=== PATIENT | female | born 1990 | race Caucasian/White ===

== ENCOUNTER 2016-06-02 11:08 | Emergency (ER) | payer OTHER ==
--- NOTE | ~2016-06-02 | CT2 ---
[facility] A Service of [facility] & [facility] RADIOLOGY TEXT RESULTS PATIENT: SONNY CHOI LOCATION: [facility]FT[facility] : 86 UNIT #: [id number] AGE: [address]: Sue Lynch SEX: F ORDER DR: [id number] [facility] [address] [place], [place] [address] [id number] E MR#: [id number] Acc #: [id number] NAME: SONNY CHOI : 1990 SEX: F STUDY DATE/TIME: 06/02/2016 13:37 UNIT: CFTX ROOM: STUDY DESCRIPTION: CT Abd and Pelv W Cont Attending Physician: Sue Lynch Pa-C Ordering Physician: Sue Lynch Pa-C Primary Care Physician: Generic Doctor Not In System MEDICAL IMAGING REPORT This report is preliminary unless electronic signature is present EXAM CT abdomen and pelvis 06/02/2016 HISTORY Pelvic pain after urination this a.m. Prior history of cholecystectomy. TECHNIQUE CT abdomen and pelvis performed with intravenous administration 100 mL Isovue-370. This CT exam was performed with one or more of the following radiation dose reduction techniques: automatic exposure control, adjustment of mA and/or kV according to patient size, and iterative reconstruction. COMPARISON STUDIES Comparison 09/04/[address] ABDOMEN: The lung bases show no acute disease. There is minimal dependent atelectasis at the left lung base. Inferior heart and pericardium unremarkable. Diffuse fatty infiltration of liver. No focal hepatic parenchymal abnormality. Status post cholecystectomy. Mild central biliary ductal prominence. No change. This is felt to be physiologic in nature and related to prior cholecystectomy. No obstructing process is suggested. The spleen, a small accessory spleen, pancreas, adrenal glands are unremarkable. Left kidney and ureter unremarkable. There is mild to mild/moderate right hydronephrosis to the level of a right pyeloureteral junction calculus measuring 4-5 mm in diameter. There is slight delay in contrast enhancement of the right kidney and this is felt secondary to the partial obstruction. No other right renal or ureteral calculi are seen. There is no perinephric fluid collection. Distal to the right pyeloureteral junction calculus the ureter is decompressed. [facility]. [facility] A Service of [facility] & [facility] RADIOLOGY TEXT RESULTS PATIENT: SONNY CHOI LOCATION: CFTX : 86 UNIT #: [id number] AGE: [address]: Sue Lynch SEX: F ORDER DR: CT PELVIS: No inguinal adenopathy. The urinary bladder is unremarkable. Small uterine fundal fibroid. Status post bilateral fallopian tube occlusion. Small follicular ovarian cysts. No free fluid in the pelvis. No pelvic or retroperitoneal adenopathy. Distal esophagus, stomach, small bowel, appendix normal. Colon unremarkable. There is a right paracentral umbilical hernia measuring 6.3 cm x 6.5 cm x 5.7 cm and containing only fat. Increased in size from prior examination when it measured 5.6 cm x 5.7 cm x 4.5 cm. No complication. The vascular structures are unremarkable. No acute bony abnormality. There is a metallic density anterior peroneal region favored to represent some form of genital jewelry. Please correlate with exam. IMPRESSION 1. 4-5 mm right pyeloureteral junction calculus. This is resulting in mild to mild/moderate right hydronephrosis and pelvic distension. No other renal, ureteral or bladder calculi are seen bilaterally. There is slight delay in right renal parenchymal contrast enhancement felt secondary to the partial obstruction. No perinephric fluid collection. 2. Status post cholecystectomy. 3. Pancreas, appendix normal. 4. Right paracentral umbilical hernia containing only fat. It has increased in size from prior examination but there is no evidence of complication. Please see measurements in body of report above. 5. Bilateral tubal occlusive devices in place. 6. Linear metallic density anterior inferior perineum favored to represent some form of genital jewelry. Please correlate with exam. Dictated by... Felipe Bowens M.D. THIS IS AN ELECTRONICALLY VERIFIED REPORT Felipe Bowens M.D. at 06/02/2016 4:49 PM Ayaka TD: 06/02/2016 16:02 JOB #: [id number] MEDICAL IMAGING REPORT Page 1 of 1 COPY
[~2016-06-02 11:08] MED LIST: BACTRIM DS TABL1 TA1 PO; CIPRO250 MG PO; DOXYCYCLINE HY100 M1 PO; FLONASE 0.05% N16 G1; IBUPROFEN800 MG PO; KEFLEX PO; KEFLEX250 M1 PO; MULTI-DAY VITAM1 TAB PO; ORUDIS75 M1 DOB; PYRIDIUM100 MG PO; TESSALON200 MG PO; VICODIN 5/1 TAB 5/50 PO; ZITHROMAX1 G/PKT PO; ZOFRAN PO
[2016-06-02 11:15] LABS: URINE SOURCE CLEAN CATCH
[2016-06-02 11:19] LABS: URINE APPEARANCE TURBID; URINE BILIRUBIN NEG (NEG); URINE BLOOD 3+ (NEG); URINE COLOR YELLOW; URINE GLUCOSE NEG (NEG); URINE KETONE NEG (NEG); URINE LEUKOCYTE ESTERASE 1+ (NEG); URINE NITRATE NEG (NEG); URINE PROTEIN 1+ (NEG); URINE SPECIFIC GRAVITY 1.022 (1.003-1.035); URINE UROBILINOGEN 0.2 MG/DL (NEG)
[2016-06-02 11:22] LABS: CULTURE INDICATED? YES; URBCS1 AUWI INNUM /[HPF] (0-2); URINE BACTERIA AUWI 2+ (NEGATIVE); URINE SQUAMOUS EPITHELIAL CELL MANY /[HPF]
[2016-06-02 11:36] LABS: URINE YEAST PRESENT
[2016-06-02 12:20] LABS: BASOPHIL# 0.1 X10e3 (0-0.3); BASOPHIL% 0.6 % (0-2.5); DIFF IND NO; EOSINOPHIL# 0.1 X10e3 (0-0.7); EOSINOPHIL% 0.9 % (0.0-7.0); HEMATOCRIT 41.3 % (35.0-45.0); HEMOGLOBIN 13.2 gm/dL (12.0-16.0); LYMPHOCYTE# 2.4 X10e3 (1.0-3.5); LYMPHOCYTE% 20.9 % (17.0-45.0); MEAN CELL VOLUME 83.7 FL (83-96); MEAN CORPUSCULAR HEMOGLOBIN 26.7 PG (28-34); MEAN PLATELET VOLUME 8.6 FL (6.5-11.5); MONOCYTE# 0.5 X10e3 (0-1.0); MONOCYTE% 4.2 % (3.0-12.0); NEUTROPHIL# 8.4 X10e3 (1.5-7.1); NEUTROPHIL% 73.4 % (40-75); PLATELET COUNT 355 X10e3 (140-420); RED BLOOD COUNT 4.93 X10e (3.90-5.30); RED CELL DISTRIBUTION WIDTH 13.6 % (11.0-15.5); WHITE BLOOD COUNT 11.5 X10e3 (4.0-10.5)
[2016-06-02 13:00] LABS: ALBUMIN SERUM 4.1 g/dL (3.5-5.0); BILIRUBIN,TOTAL 0.5 mg/dL (0.2-2.0); BUN/CREATININE RATIO 17.5; CREATININE SERUM 0.8 mg/dL (0.6-1.4); GLOM FILT RATE Estimated 101.1 mL/min (>60); POTASSIUM 3.7 mmol/L (3.5-5.1); PROTEIN TOTAL SERUM 8.1 g/dL (6.0-8.3)
[2016-06-02 15:55] LABS: URINE SOURCE CATH
[2016-06-02 16:06] LABS: URINE APPEARANCE CLEAR; URINE BILIRUBIN NEG (NEG); URINE BLOOD 3+ (NEG); URINE COLOR YELLOW; URINE GLUCOSE NEG (NEG); URINE KETONE NEG (NEG); URINE LEUKOCYTE ESTERASE NEG (NEG); URINE NITRATE NEG (NEG); URINE PROTEIN NEG (NEG); URINE SPECIFIC GRAVITY 1.075 (1.003-1.035); URINE UROBILINOGEN 0.2 MG/DL (NEG)
[2016-06-02 16:08] LABS: URINE BACTERIA AUWI NEG (NEGATIVE); URINE SQUAMOUS EPITHELIAL CELL OCC /[HPF]; UWBCS1 AUWI 0-2 (0-5)
[2016-06-02 16:09] LABS: CULTURE INDICATED? NO
[2016-06-06 03:07] LABS: CHLAMYDIA TRACH Not Detected (Not Detected); N GONOR Not Detected (Not Detected)
== END 2016-06-02 17:20 | disposition home or self-care (01) ==
LOC: CED 11:08
PROVIDERS: Physician Assistant Medical
DX: O26.831 Pregnancy related renal disease, first trimester (principal); N13.2 Hydronephrosis with renal and ureteral calculous obstruction
CPT/HCPCS: 36415; 51701; 74177; 80053; 81003; 84703; 85025; 87086; 87491; 87591; 87808; 87905; 96361; 96374; 96375; 96376; 99284; J1885; J2270; J2405; Q9967